=== PATIENT | male | born 1995 | race Caucasian/White ===

== ENCOUNTER 2022-01-09 20:34 | Emergency (ER) | payer OTHER, SELFPAY ==
[2022-01-09 20:37] VITALS: BP 136/91; BP 148/90; PULSE 112; PULSE 92; RESP 16; TEMP 37.3; O2SAT 97; O2SAT 98; BMI 25.8
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
--- NOTE | 2022-01-09 21:17 | MHC.CARE ---
Care Team received a consult for detox. Care Team met with pt in ED 22 H. Pt reported he stopped using heroin 4 days ago cold . However, pt reported he could not stand the pain and used 2 bags. Pt reported he has not been able to sleep or eat since he attempted to stop using heroin. Care Team offered detox information and pt declined due to receiving detox information from Jenny [place].
== END 2022-01-09 22:54 | disposition home or self-care (01) ==
PROVIDERS: Emergency Provider Emergency Medicine
DX: T40.1X1A Poisoning by heroin, accidental (unintentional), initial encounter (principal); R40.0 Somnolence; Y92.810 Car as the place of occurrence of the external cause; M79.605 Pain in left leg
CPT/HCPCS: 99284

== ENCOUNTER 2022-01-27 15:51 | Emergency (ER) | payer OTHER, SELFPAY ==
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
[2022-01-27 16:16] VITALS: BP 128/58; BP 128/89; PULSE 81; PULSE 99; RESP 16; TEMP 36.4; O2SAT 98; BMI 21.2
--- OUTSIDE RECORDS SUMMARY | 2022-01-27 16:22 | XMS_ITS | Continuity of Care Document ---
:1995 Author Organization [facility] Address [address] [place] [id number]- Care Team Providers Name Role Phone Not on Staff, PCP Primary Care Physician Unavailable Encounter [facility] Date(s): 04/09/19 - 04/09/[address] [id number]- [facility] Encounter Diagnosis Right TM perforation (Final) - 04/09/19 Discharge Disposition: A-D/C Home Attending Physician: Kiya Burns MD Admitting Physician: Kiya Burns MD Referring Physician: Not on Staff, Referring MD Allergies, Adverse Reactions, Alerts No Known Medication Allergies Medications Cortisporin-TC 0.3%-1%-0.33%-0.05% suspension 4 drops, Ears, Both, 4 times a day, for 7 days, right ear, # 5 mL, 0 Refills, Acute 04/16/19 22:56:00 EST, 04/09/19 22:56:00 EST, Suspension, [id number], 4 drops Ears, Both 4 times a day,x7 days,Instr:right ear, 183, cm, 12/31/18 19:30:00 EST,... Start Date: 04/09/19 Stop Date: 04/16/19 Status: OrderedNarcan 4 mg/0.1 mL nasal spray = 4 mg, Nares, Both, Once, # 2 each, 1 Refills, Soft Stop, 04/09/19 22:57:00 EST, [id number], 183, cm, 12/31/18 19:30:00 EST, Height, 72, kg, 12/31/18 18:41:00 EST, Dry Weight Start Date: 04/09/19 Status: Ordered Vital Signs Most recent to oldest [Reference Range]: 1 Oxygen Saturation [94-100 %] 93 % *L* (04/09/19 9:13 PM) Pulse Rate [55-90 bpm] 72 bpm (04/09/19 9:13 PM) Respiratory Rate [16-30 br/min] 22 br/min (04/09/19 9:13 PM) Temperature [96.8-100.4 DegF] 98.6 DegF (04/09/19 9:13 PM) Mode of Delivery (Oxygen) Room air (04/09/19 9:13 PM) Temperature Route Oral (04/09/19 9:13 PM) Social History Social History Type Response Tobacco Use: 1 pack/day. Sex
== END 2022-01-27 16:33 | disposition home or self-care (01) ==
PROVIDERS: Emergency Provider Emergency Medicine
DX: F19.99 Other psychoactive substance use, unspecified with unspecified psychoactive substance-induced disorder (principal)
CPT/HCPCS: 99282; 99283

== ENCOUNTER 2022-01-28 09:32 | Emergency (ER) | payer OTHER, SELFPAY ==
[2022-01-28 09:47] VITALS: BP 137/71; BP 166/89; PULSE 104; PULSE 134; RESP 17; O2SAT 95; O2SAT 97; BMI 22.0
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
== END 2022-01-28 10:46 | disposition home or self-care (01) ==
PROVIDERS: Emergency Provider Student in an Organized Health Care Education/Training Program
DX: F11.10 Opioid abuse, uncomplicated (principal); Z79.899 Other long term (current) drug therapy
CPT/HCPCS: 99283